=== PATIENT | female | born 1990 | race African-American/Black ===

== ENCOUNTER 2016-07-24 15:48 | Emergency (ER) | payer OTHER ==
[~2016-07-24] VITALS: Ht 160 cm; Wt 67.8 kg
[2016-07-24 16:12] LABS: ADD MIUA? YES; BILIRUBIN NEGATIVE; BLOOD NEGATIVE; COLOR YELLOW ((YELLOW)); GLUCOSE (STRIP) NEGATIVE; KETONES NEGATIVE; LEUKOCYTES SMALL; NITRITE NEGATIVE; PROTEIN (STRIP) 30; SPECIFIC GRAVITY 1.026 (1.000-1.030)
[2016-07-24 16:32] LABS: BACTERIA NONE SEEN /HPF; EPITHELIAL CELLS RARE /HPF; MUCUS 1+ /LPF; RED BLOOD CELLS NONE SEEN /HPF (0-5); UCUL ADDED? NO
[2016-07-24 16:36] LABS: HEMATOCRIT 37.2 % (36.0-46.0); MCH 31.5 PG (29.0-34.0); MCHC 36.3 G/DL (30.0-36.0); MCV 86.7 FL (83-99); MEAN PLAT.VOLUME 11.2 uM^3 (9.5-12.4); PLATELET COUNT 255 K/uL (156-360); RBC DIS.WIDTH-CV 12.2 % (11.8-14.6); RBC DIS.WIDTH-SD 38.9 % (39-53); RED BLOOD COUNT 4.29 M/uL (3.80-5.20)
[2016-07-24 16:49] LABS: CHLORIDE 107 mEq/L (99-109); POTASSIUM 3.7 mEq/L (3.7-5.4); SODIUM 138 mEq/L (136-147)
[2016-07-24 16:50] LABS: GLUCOSE 85 mg/dL (70-99)
[2016-07-24 16:52] LABS: ANION GAP 8 MEQ/L (2-14)
[2016-07-24 16:54] LABS: GFR ESTIMATE (CALCULATED) > 59 mL/min/
[2016-07-24 16:55] LABS: UREA NITROGEN (BUN) 13 mg/dL (9-23)
[2016-07-24 17:02] LABS: QUANTITATIVE HCG 6167.7 MIU/ML
[2016-07-24] MEDS ORDERED: PRENATAL TABLE1 EAC3 PO (17:48)
[2016-07-24 17:55] VITALS: BP 132/74
== END 2016-07-24 17:55 | disposition home or self-care (01) ==
LOC: EME 15:48
PROVIDERS: Physician Assistant
DX: O26.899 Other specified pregnancy related conditions, unspecified trimester (principal); N83.209 Unspecified ovarian cyst, unspecified side; Z3A.00 Weeks of gestation of pregnancy not specified; Z87.891 Personal history of nicotine dependence
CPT/HCPCS: 76801; 80048; 81003; 84702; 85027; 99281; 99284

== ENCOUNTER 2017-03-05 11:13 | Outpatient (CLI) | payer OTHER ==
[~2017-03-05] VITALS: Ht 162.6 cm; Wt 78.2 kg
[~2017-03-05 11:13] MED LIST: PRENATAL TABLE1 EAC3 PO
[2017-03-05 11:25] VITALS: BP 124/67
== END 2017-03-05 13:11 | disposition home or self-care (01) ==
LOC: LDRP-OP → 2WEST 11:14 → LDRP-OP 04-24 12:07
DX: O47.1 False labor at or after 37 completed weeks of gestation (principal); Z3A.37 37 weeks gestation of pregnancy; Z87.891 Personal history of nicotine dependence
CPT/HCPCS: 59025; G0378

== ENCOUNTER 2017-03-19 00:48 | Inpatient (IN) | payer OTHER ==
[~2017-03-19] VITALS: Ht 162.6 cm; Wt 78.0 kg
[2017-03-19] VITALS (20 sets, daily range): BP systolic 105–140; BP diastolic 56–74
[2017-03-19] MEDS ORDERED: VALACYCLOVIR500 MG PO (01:13)
[2017-03-19 03:13] LABS: BASOPHIL (%) 0.3 % (0-1); EOSINOPHIL (%) 0.9 % (0-5); EOSINOPHIL COUNT 0.1 K/uL (0-0.3); HEMATOCRIT 32.4 % (36.0-46.0); HEMOGLOBIN 11.6 G/DL (11.9-15.5); IMMATURE GRANULOCYTE (%) 0.4 % (0.0-0.7); LYMPHOCYTE (%) 10.9 % (15-42); LYMPHOCYTE COUNT 1.5 K/uL (1.0-2.8); MCH 29.4 PG (29.0-34.0); MCHC 35.8 G/DL (30.0-36.0); MCV 82.2 FL (83-99); MONOCYTE (%) 5.9 % (3-12); MONOCYTE COUNT 0.8 K/uL (0-0.8); NEUTROPHIL (%) 81.6 % (45-76); NEUTROPHIL COUNT 11.3 K/uL (1.8-6.4); PLATELET COUNT 292 K/uL (156-360); RBC DIS.WIDTH-CV 13.4 % (11.8-14.6); RBC DIS.WIDTH-SD 40.1 % (39-53); RED BLOOD COUNT 3.94 M/uL (3.80-5.20); WHITE BLOOD COUNT 13.8 K/uL (4.1-10.2)
[2017-03-20 07:23] VITALS: BP 115/69
[2017-03-20 08:28] LABS: BASOPHIL (%) 0.4 % (0-1); BASOPHIL COUNT 0.1 K/uL (0-0.1); EOSINOPHIL (%) 1.8 % (0-5); EOSINOPHIL COUNT 0.2 K/uL (0-0.3); HEMATOCRIT 29.3 % (36.0-46.0); HEMOGLOBIN 10.3 G/DL (11.9-15.5); IMMATURE GRANULOCYTE (%) 0.6 % (0.0-0.7); LYMPHOCYTE (%) 15.1 % (15-42); MCH 29.3 PG (29.0-34.0); MCHC 35.2 G/DL (30.0-36.0); MCV 83.2 FL (83-99); MONOCYTE (%) 9.9 % (3-12); MONOCYTE COUNT 1.3 K/uL (0-0.8); NEUTROPHIL (%) 72.2 % (45-76); NEUTROPHIL COUNT 9.6 K/uL (1.8-6.4); PLATELET COUNT 256 K/uL (156-360); RBC DIS.WIDTH-CV 13.8 % (11.8-14.6); RBC DIS.WIDTH-SD 41.3 % (39-53); RED BLOOD COUNT 3.52 M/uL (3.80-5.20); WHITE BLOOD COUNT 13.4 K/uL (4.1-10.2)
[2017-03-20 15:05] VITALS: BP 122/61
[2017-03-20 23:00] VITALS: BP 113/81
[2017-03-21 07:41] VITALS: BP 108/75
[2017-03-21] MEDS ORDERED: FERRO-TIME325 MG PO (11:50)
[2017-03-21] MEDS ORDERED: DOCUSATE SODIU100 MG PO (11:50)
[2017-03-21] MEDS ORDERED: IBUPROFEN800 MG PO (11:50)
[2017-03-21] MEDS ORDERED: METRONIDAZOLE500 MG PO (11:50)
== END 2017-03-21 12:35 | disposition home or self-care (01) | DRG 774 ==
LOC: LDRP-OP 00:48 → 2WEST 00:49 → LDRP-OP 04-19 13:59
PROVIDERS: Advanced Practice Midwife; Obstetrics & Gynecology
PROC: 3E0R3BZ Introduction of Anesthetic Agent into Spinal Canal, Percutaneous Approach (ICD-10-PCS; principal; 2017-03-19)
PROC: 00HU33Z Insertion of Infusion Device into Spinal Canal, Percutaneous Approach (ICD-10-PCS; principal; 2017-03-19)
PROC: 10E0XZZ Delivery of Products of Conception, External Approach (ICD-10-PCS; principal; 2017-03-19)
DX: O98.32 Other infections with a predominantly sexual mode of transmission complicating childbirth (principal); Z37.0 Single live birth; O99.824 Streptococcus B carrier state complicating childbirth; D62 Acute posthemorrhagic anemia; O98.82 Other maternal infectious and parasitic diseases complicating childbirth; O99.02 Anemia complicating childbirth; E66.3 Overweight; A60.00 Herpesviral infection of urogenital system, unspecified; Z3A.39 39 weeks gestation of pregnancy
CPT/HCPCS: 85025; C1755; J2405; J2540; J7120

== ENCOUNTER 2017-04-15 23:50 | Emergency (ER) | payer OTHER ==
[~2017-04-15] VITALS: Ht 162.6 cm; Wt 70.4 kg
[~2017-04-15 23:50] MED LIST changes: +DOCUSATE SODIU100 MG PO; +FERRO-TIME325 MG PO; +IBUPROFEN800 MG PO; +METRONIDAZOLE500 MG PO; +VALACYCLOVIR500 MG PO
[2017-04-16] MEDS ORDERED: MOTRIN600 MG PO (00:51)
[2017-04-16 01:00] VITALS: BP 128/70
== END 2017-04-16 01:01 | disposition home or self-care (01) ==
LOC: EME 23:50
DX: S60.445A External constriction of left ring finger, initial encounter (principal); W49.04XA Ring or other jewelry causing external constriction, initial encounter; Z87.891 Personal history of nicotine dependence
CPT/HCPCS: 99281; 99283